=== PATIENT | female | born 1995 | race Caucasian/White ===

== ENCOUNTER → 2018-10-27 | Outpatient (CLI) | payer OTHER | LOC: DIA.ED 09:11 | DX: O24.419 Gestational diabetes mellitus in pregnancy, unspecified control (principal); Z3A.25 25 weeks gestation of pregnancy | CPT/HCPCS: G0108 ==

== ENCOUNTER 2018-12-16 02:25 | Outpatient (CLI) | payer SELFPAY ==
[~2018-12-16] VITALS: Ht 172.7 cm; Wt 108.6 kg
--- NOTE | 2018-12-16 02:45 | NUR ---
PT ARRIVED TO UNIT AMBULATORY WITH CONCERNS OF ELEVATED BP. PT TO ROOM WITH MOTHER, ORIENTED TO ROOM, INSTRUCTED TO CHANGE INTO GOWN. VS OBTAINED, EFMX2 APPLIED, SVE PERFORMED.
[2018-12-16] MEDS ORDERED: PRENATAL PO (02:59)
[2018-12-16 03:00] VITALS: BP 131/84; PULSE 75; TEMP 98.1
[2018-12-16 03:30] VITALS: BP 131/84; PULSE 75; TEMP 98.1
[2018-12-16 04:00] VITALS: BP 135/85; PULSE 74
[2018-12-16 04:36] VITALS: BP 141/92; PULSE 73
--- NOTE | 2018-12-16 04:36 | NUR ---
PT OK TO DC HOME PER DR. PERALES. MONTIORING DC'D AT 0436, DISCHARGED INSTRUCTIONS REVIEWED WITH PT AND HER MOTHER. UNDERSTANDING VERBALIZED. PT LEFT THE UNIT AT 0445.
== END 2018-12-16 04:45 ==
LOC: LDRO 02:25 → LDR 03:10 → LDRO 03:10 → LDR 04:45 → LDRO 04:45 → LDR 12-17 04:45 → LDRO 12-18 12:43
DX: O62.9 Abnormality of forces of labor, unspecified (principal); O13.3 Gestational [pregnancy-induced] hypertension without significant proteinuria, third trimester; Z3A.36 36 weeks gestation of pregnancy
CPT/HCPCS: OP

== ENCOUNTER 2018-12-21 05:11 | Inpatient (IN) | payer OTHER ==
[2018-12-21] VITALS (18 sets, daily range): BP systolic 105–135; BP diastolic 66–94; PULSE 57–86; TEMP 97.4–98.5
[~2018-12-21] VITALS: Ht 172.7 cm; Wt 109.1 kg
[~2018-12-21 05:11] MED LIST: PRENATAL PO
--- NOTE | 2018-12-21 05:20 | NUR ---
G2L1 at 37 weeks and 4 days arrives to unit ambulatory for scheduled section. Pt reports good movement, denies feeling contractions, denies vaginal bleeding or LOF. Pt changed into clean gown. US and toco explained and applied. IV started in right forearm after 1 attempt, admission labs obtained off of IV start. Lactated Ringers infusing to gravity. Consents reviewed with patient and family member. Plan of care reviewed. Call light within reach.
[2018-12-21 05:49] LABS: BASO % 0.2 % (0.0-2.0); EOS # 0.1 (0.0-0.7); EOS % 0.9 % (0-4.0); GRAN # 6.1 (1.4-6.5); GRAN % 62.2 % (42.2-75.2); HEMATOCRIT 39.5 % (37.0-47.0); HEMOGLOBIN 13.3 g/dl (12.5-16.0); LYMPH % 30.2 % (20.0-51.0); MEAN CELL VOLUME 91 fl (80.0-100.0); MEAN CORPUSCULAR HEMOGLOBIN 31 pg (27.0-31.0); MEAN CORPUSCULAR HGB CONC 34 g/dl (33.0-37.0); MEAN PLATELET VOLUME 10.7 fl (7.4-10.4); MONO # 0.6 (0.1-0.6); MONO % 5.9 % (1.7-9.3); PLATELET COUNT 229 K/mm3 (130-400); RED BLOOD COUNT 4.33 M/mm3 (4.10-5.30); REDCELL DISTRIBUTION WIDTH-CV 13.2 % (11.5-14.5)
--- NOTE | 2018-12-21 17:00 | NUR ---
PATIENT UP TO BATHROOM WITH STANDBY ASSIST. MCCORMACK DC'D 10MLS OF FLUID REMOVED FROM BULB THEN MCCORMACK REMOVED FROM BLADDER. PATIENT UNABLE TO VOID AT THIS TIME. ENCOURAGED TO DRINK FLUIDS AND RETRY IN 2-3 HOURS.
[2018-12-22 00:05] VITALS: BP 130/88; PULSE 71; TEMP 98.1
[2018-12-22 04:15] VITALS: BP 129/88; PULSE 75; TEMP 98.4
[2018-12-22 06:33] VITALS: BP 112/80; PULSE 72; TEMP 98
--- NOTE | 2018-12-22 09:14 | NUR ---
Initial visit; Patient thanked Sander Machine for offering congratulations and God's blessings for the of her son. Sander Machine thanked family for choosing [facility].
--- NOTE | 2018-12-22 13:58 | NUR ---
pole frame construction worker met with patient and discussed difficult dynamics observed by staff on day of delivery. Patient stated she was fine. Worker offered support if patient needed to share. Worker collaborated with patient's nurse regarding the above information.
[2018-12-22 15:07] VITALS: BP 121/89; PULSE 90; TEMP 98.1
[2018-12-22 20:00] VITALS: BP 116/71; PULSE 60; TEMP 99
--- NOTE | 2018-12-23 09:00 | NUR ---
Rests in bed, alert, holding baby. Denies any needs at this time.
[2018-12-23 10:00] VITALS: BP 131/76; PULSE 74; TEMP 98.8
[2018-12-23] MEDS ORDERED: PERCOCET 325 MG1 TA2 PO (11:17)
[2018-12-23] MEDS ORDERED: IBU800 M1 PO (11:17)
== END 2018-12-23 14:15 | disposition home or self-care (01) | DRG 788 ==
LOC: OB 05:11
PROVIDERS: ADMIT Student in an Organized Health Care Education/Training Program
PROC: 10D00Z1 Extraction of Products of Conception, Low, Open Approach (ICD-10-PCS; principal; 2018-12-21)
DX: O14.04 Mild to moderate pre-eclampsia, complicating childbirth (principal); Z3A.37 37 weeks gestation of pregnancy; Z37.0 Single live birth; O24.429 Gestational diabetes mellitus in childbirth, unspecified control; O99.214 Obesity complicating childbirth; E66.9 Obesity, unspecified; O99.62 Diseases of the digestive system complicating childbirth; K66.0 Peritoneal adhesions (postprocedural) (postinfection); Z86.19 Personal history of other infectious and parasitic diseases
CPT/HCPCS: J0171; J0690; J1885; J2270; J2370; J2405; J2590; J2765; J7120